=== PATIENT | female | born 1935 | race Caucasian/White ===

== ENCOUNTER 2024-08-02 14:30 | Outpatient (CLI) | payer MEDICARE, MEDICAID ==
[~2024-08-02] VITALS: Ht 157.5 cm; Wt 55.8 kg
[~2024-08-02 14:30] MED LIST: APIX5TAB3 PO; FAMO40TA7 PO; HYDR28CR45 EPI; PRED5TAB PO; SOTA80TA73 PO
[2024-08-02] MEDS: albuterol 2.5 MG/3 ML nebule NEB ONE (15:11)
[2024-08-02 15:12] VITALS: PULSE 80; RESP 18; O2SAT 96
[2024-08-02 15:24] VITALS: PULSE 72; RESP 16
--- NOTE | 2024-08-03 14:49 | PROCEDURE NOTE - Respiratory ---
Procedure Note-Respiratory Providers to CC Copies To 1: TAMEKA MONTOYA MD; BRONSON BATISTA MD Procedure Name: This is a spirometry study dated August 02, 2024. The spirometry study was per formed both before and after inhaled bronchodilator. Spirometry measurements: The forced vital capacity is normal. The FEV1 is at the lower range of normal. The FEV1 ratio is clearly reduced. All of the measured flow rates show substantial reduction. After inhaled bronchodilator the FEV1 and the flow rates show very significant improvement. Conclusion: This study is abnormal. 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 The patient shows significant improvement with inhaled bronchodilator. These findings suggest a diagnosis of asthma. This patient should receive a trial of inhaled bronchodilator therapy. We have a previous study for comparison dated April of 2015. Over the past nine years the vital capacity and the FEV1 measurements have remains surprisingly stable. DIANA BRUNO MD August 03, 2024 14:49
== END 2024-08-03 23:59 | disposition home or self-care (01) ==
LOC: RT 14:30
PROVIDERS: ATTEND Family Medicine
DX: R06.02 Shortness of breath (principal); J98.8 Other specified respiratory disorders
CPT/HCPCS: 94060; 94760